=== PATIENT | female | born 1995 | race Caucasian/White ===

== ENCOUNTER 2017-04-13 13:52 | Emergency (ER) | payer OTHER ==
[2017-04-13 14:02] VITALS: RESP 20; TEMP 97.5
[2017-04-13] MEDS ORDERED: NS 1,000 ML IV ONE ×2 (14:15→15:18)
[2017-04-13] MEDS ORDERED: KETOROLAC 30 MG/1 ML SDV IVP ONE (14:15)
--- NOTE | 2017-04-13 14:16 | EDPHY ---
H & P Stated Complaint: L abd pain x 1 hr, +nausea, no vomiting/diarrhea. Source: Patient Exam Limitations: No limitations - Personal History LMP (Females 10-55): Extended Cycle BCP/Inj Current Tetanus/Diphtheria Vaccine: Yes Current Tetanus Diphtheria and Acellular Pertussis (TDAP): Yes - Medical/Surgical History Hx Asthma: No Hx Chronic Respiratory Disease: No Hx Diabetes: No Hx Cardiac Disease: No Hx Renal Disease: No Hx Cirrhosis: No Hx Alcoholism: No Hx HIV/AIDS: No Hx Splenectomy or Spleen Trauma: No Other PMH: adhd, anxiety - Social History Smoking Status: Current some day smoker Time Seen by Provider: 04/13/17 14:16 HPI/ROS: HPI: This is a 21-year-old female presents with Chief Complaint:Left abd pain x 1 hr, +nausea, no vomiting/diarrhea. Location: Left lower quadrant/left flank Quality: Shooting, sharp pain Duration: 1-3 hours Signs and Symptoms: + nausea, no vomiting, no diarrhea, no vaginal bleeding, no vaginal discharge, no shortness of breath, no dysuria, no hematuria, no hematemesis, no blood in stool Timing: Sudden, constant Severity: 10/10 Context: Patient woke up this afternoon and had sudden onset of shooting, sharp , severe 10/10, nonradiating pain in her left lower quadrant and left flank. Patient has at implant in her arm and her menses are irregular. Denies any vaginal bleeding/discharge. Denies any recent sexual activity. Yesterday she was eating and drinking normally. Denies burning with urination, urinary hesitancy, urinary frequency. No prior history of ovarian cyst/fibroids/kidney stones. She reports that she has not tried anything for the medications. She is adamant that this does not feel like a urinary tract infection. Had bowel movement this morning. Passing flatus. Modifying Factors: None Comment: ROS: see HPI Constitutional: No fever, no chills, no weight loss Eyes: No blurred vision Respiratory: No shortness of breath, no cough Cardiovascular: No chest pain Gastrointestinal: No nausea, no vomiting, no diarrhea Genitourinary: No dysuria Extremities: No myalgias Neurologic: No weakness, no numbness Skin: No rashes Hematologic: No bruising, no bleeding MEDICAL/SURGICAL/SOCIAL HISTORY: Medical history: Denies generally healthy Surgical history: Denies Social history: College student, works part-time CONSTITUTIONAL: Young adult white female, nontoxic in appearance, awake and alert, moderate distress HEENT: Atraumatic and normocephalic, PERRL, EOMI. Tympanic membranes clear. Oropharynx clear, no exudate and moist pink mucosa. Airway patent. No lymphadenopathy. No meningismus. Cardiovascular: Normal S1/S2, regular rate, regular rhythm, without murmur rub or gallop. PULMONARY/CHEST: Symmetrical and nontender. Clear to auscultation bilaterally. Good air movement. No accessory muscle usage. ABDOMEN: Soft, nondistended, moderate left lower/left-sided umbilicus tenderness, no rebound, + guarding, no peritoneal signs, no masses or organomegaly. No CVAT. EXTREMITIES: 2/2 pulses, no deformities, no clubbing, no cyanosis or edema. NEUROLOGICAL: no focal neuro deficits. GCS 15. SKIN: Warm and dry, no erythema. no rash. Good capillary refill. (Deena Barbosa) Constitutional: Initial Vital Signs Temperature (C) 36.4 C 04/13/17 13:58 Heart Rate 86 04/13/17 13:58 Respiratory Rate 20 04/13/17 13:58 Blood Pressure 120/88 H 04/13/17 13:58 O2 Sat (%) 100 04/13/17 13:58 O2 Delivery Mode Room Air Allergies/Adverse Reactions: No Known Allergies Allergy (Unverified 04/13/17 13:57) Home Medications: Medication Instructions Recorded Cefuroxime Axetil [Ceftin (*)] 250 mg PO BID #13 tab 04/13/17 Lexapro 04/13/17 Norplant 04/13/17 Ondansetron Odt [Zofran Odt 4 mg 4 mg PO Q4 PRN #12 tab 04/13/17 (*)] Vyvanse 04/13/17 oxyCODONE/APAP 5/325 [Percocet 1 - 2 tab PO Q4H PRN #12 tab 04/13/17 5/325 (*)] Medical Decision Making - Diagnostics Imaging Results: Imaging Impressions Abdomen/Pelvis CT 04/13/17 14:21 Impression: A 3-mm calculus at the ureterovesical junction distal left ureter, with minimal left hydroureter and hydronephrosis. Results called and discussed with Deena Barbosa PA-C, on April 13, 2017 at 1719. Attention: This CT examination is specifically designed to evaluate patients who are clinically suspected of having acute obstructive uropathy. This examination does not use radiographic contrast, and as such, provides only a limited evaluation of the abdomen, pelvis, and retroperitoneum. If there is further clinical suspicion for pathological conditions other than obstructive uropathy, a complete CT evaluation of the abdomen and pelvis utilizing intravenous, oral, and rectal contrast should be considered. Pelvic/Renal Ultrasound 04/13/17 14:21 Impression: 1. Normal pelvic ultrasound. Findings discussed with Deena Barbosa PAC at 16:24 hour, 04/13/2017. ED Course/Re-evaluation: Labs, urinalysis, CT abdomen and pelvis without contrast, pelvic ultrasound, IV fluids, IV medications ordered Given 2 L normal saline, IV Toradol, IV morphine with adequate relief of pain serum hcg negative 1500: Labs reviewed and are grossly unremarkable. Urinalysis is consistent with infection; sent for urine culture; given Keflex. 1625: Called by Radiology who advised pelvic ultrasound shows no ectopic /ovarian torsion/ruptured ovarian cyst/fibroids 1720: Called by radiologist and CT abdomen and pelvis scan shows 3 mm small stone at the ureterovesical junction distal left ureter with no hydronephrosis. Given Flomax. Pain controlled and passed p.o. trial prior to discharge. Given strainer to take home. (Deena Barbosa) The patient was evaluated and managed by the physician assistant activities director. I have reviewed this chart and I agree with the findings and plan of care as documented , as indicated by my signature. I am the secondary supervising physician. ( Rita Lima) Differential Diagnosis: Abdominal pain in a female including but not limited to ovarian cyst, pelvic inflammatory disease, ovarian torsion, urinary tract infection, and appendicitis. (Deena Barbosa) - Data Points Laboratory Results: Laboratory Results 04/13/17 14:15 04/13/17 14:15 04/13/17 04/13/17 04/13/17 14:32 14:15 14:15 WBC RBC Hgb Hct MCV MCH MCHC RDW Plt Count MPV Neut % (Auto) Lymph % (Auto) [place] % (Auto) Eos % (Auto) Baso % (Auto) Nucleat RBC Rel Count Absolute Neuts (auto) Absolute Lymphs (auto) Absolute Monos (auto) Absolute Eos (auto) Absolute Basos (auto) Absolute Nucleated RBC Immature Gran % Immature Gran # Sodium 139 mEq/L mEq/L (134-144) Potassium 3.7 mEq/L mEq/L (3.5-5.2) Chloride 103 mEq/L mEq/L (97-110) Carbon Dioxide 20 mEq/l L mEq/l (22-31) Anion Gap 16 mEq/L mEq/L (8-16) BUN 13 mg/dL mg/dL (7-23) Creatinine 0.8 mg/dL mg/dL (0.6-1.0) Estimated GFR > 60 Glucose 114 mg/dL H mg/dL (70-100) Calcium 10.0 mg/dL mg/dL (8.5-10.4) Total Bilirubin 1.3 mg/dL mg/dL (0.1-1.4) Conjugated Bilirubin 0.2 mg/dL mg/dL (0.0-0.5) Unconjugated Bilirubin 1.1 mg/dL mg/dL (0.0-1.1) AST 36 IU/L IU/L (14-46) ALT 64 IU/L H IU/L (9-52) Alkaline Phosphatase 93 IU/L IU/L (38-126) Total Protein 8.0 g/dL g/dL (6.3-8.2) Albumin 4.7 g/dL g/dL (3.5-5.0) Lipase 52 IU/L IU/L (23-300) Beta HCG, Qual NEGATIVE Urine Color YELLOW Urine Appearance MODERATELY TURBID Urine pH 5.0 (5.0-7.5) Ur Specific [place] 1.021 (1.002-1.030) Urine Protein 1+ H (NEGATIVE) Urine Ketones TRACE H (NEGATIVE) Urine Blood 3+ H (NEGATIVE) Urine Nitrate NEGATIVE (NEGATIVE) Urine Bilirubin NEGATIVE (NEGATIVE) Urine Urobilinogen NEGATIVE EU EU (0.2-1.0) Ur Leukocyte Esterase 1+ H (NEGATIVE) Urine RBC 50-182 /hpf H /hpf (0-3) Urine WBC 15-25 /hpf H /hpf (0-3) Ur Epithelial Cells TRACE /lpf /lpf (NONE-1+) Urine Bacteria 3+ /hpf H /hpf (NONE SEEN) Urine Mucus 3+ /lpf H /lpf (NONE-1+) Urine Glucose NEGATIVE (NEGATIVE) 04/13/17 14:15 WBC 9.40 10^3/uL 10^3/uL (3.80-9.50) RBC 4.68 10^6/uL 10^6/uL (4.18-5.33) Hgb 14.0 g/dL g/dL (12.6-16.3) Hct 39.7 % % (38.0-47.0) MCV 84.8 fL fL (81.5-99.8) MCH 29.9 pg pg (27.9-34.1) MCHC 35.3 g/dL g/dL (32.4-36.7) RDW 12.6 % % (11.5-15.2) Plt Count 247 10^3/uL 10^3/uL (150-400) MPV 10.3 fL fL (8.7-11.7) Neut % (Auto) 62.0 % % (39.3-74.2) Lymph % (Auto) 26.2 % % (15.0-45.0) [place] % (Auto) 8.4 % % (4.5-13.0) Eos % (Auto) 2.9 % % (0.6-7.6) Baso % (Auto) 0.2 % L % (0.3-1.7) Nucleat RBC Rel Count 0.0 % % (0.0-0.2) Absolute Neuts (auto) 5.83 10^3/uL 10^3/uL (1.70-6.50) Absolute Lymphs (auto) 2.46 10^3/uL 10^3/uL (1.00-3.00) Absolute Monos (auto) 0.79 10^3/uL 10^3/uL (0.30-0.80) Absolute Eos (auto) 0.27 10^3/uL 10^3/uL (0.03-0.40) Absolute Basos (auto) 0.02 10^3/uL 10^3/uL (0.02-0.10) Absolute Nucleated RBC 0.00 10^3/uL 10^3/uL (0-0.01) Immature Gran % 0.3 % % (0.0-1.1) Immature Gran # 0.03 10^3/uL 10^3/uL (0.00-0.10) Sodium Potassium Chloride Carbon Dioxide Anion Gap BUN Creatinine Estimated GFR Glucose Calcium Total Bilirubin Conjugated Bilirubin Unconjugated Bilirubin AST ALT Alkaline Phosphatase Total Protein Albumin Lipase Beta HCG, Qual Urine Color Urine Appearance Urine pH Ur Specific [place] Urine Protein Urine Ketones Urine Blood Urine Nitrate Urine Bilirubin Urine Urobilinogen Ur Leukocyte Esterase Urine RBC Urine WBC Ur Epithelial Cells Urine Bacteria Urine Mucus Urine Glucose Medications Given: Discontinued Medications Cephalexin HCl (Keflex) 500 mg PO EDNOW ONE PRN Reason: Protocol Stop: 04/13/17 17:21 Last Admin: 04/13/17 17:27 Dose: 500 mg Sodium Chloride (Ns) 1,000 mls @ 0 mls/hr IV EDNOW ONE; Wide Open PRN Reason: Protocol Stop: 04/13/17 14:16 Last Admin: 04/13/17 14:35 Dose: 1,000 mls Sodium Chloride (Ns) 1,000 mls @ 0 mls/hr IV ONCE ONE; Wide Open PRN Reason: Protocol Stop: 04/13/17 15:19 Last Admin: 04/13/17 15:18 Dose: 1,000 mls Ketorolac Tromethamine (Toradol) 30 mg IVP EDNOW ONE Stop: 04/13/17 14:16 Last Admin: 04/13/17 14:34 Dose: 30 mg Morphine Sulfate (Morphine) 4 mg IVP EDNOW ONE Stop: 04/13/17 14:21 Last Admin: 04/13/17 14:32 Dose: 4 mg Tamsulosin HCl (Flomax) 0.4 mg PO EDNOW ONE Stop: 04/13/17 17:23 Last Admin: 04/13/17 17:28 Dose: 0.4 mg Departure - Departure Disposition: Home, Routine, Self-Care Clinical Impression: Ureterolithiasis, Renal colic on left side Condition: Good Instructions: Kidney Stones (ED), Renal Colic (ED) Additional Instructions: Please drink plenty of fluids. Strain your urine and keep the stone when it passes. Follow-up with Urology in the next 3-5 days. Referrals: ANSON LEIVA [Other] - As per Instructions Raymon Florian MD [Medical Doctor] - As per Instructions Prescriptions: Cefuroxime Axetil [Ceftin (*)] 250 mg PO BID #13 tab Ondansetron Odt [Zofran Odt 4 mg (*)] 4 mg PO Q4 PRN #12 tab PRN Reason: Nausea/Vomiting, Use 1st oxyCODONE/APAP 5/325 [Percocet 5/325 (*)] 1 - 2 tab PO Q4H PRN #12 tab PRN Reason: Pain, Severe
[2017-04-13 14:29] LABS: % IMMATURE GRANULYOCYTES 0.3 % (0.0-1.1); ABSOLUTE IMMATURE GRANULOCYTES 0.03 10^3/uL (0.00-0.10); ADD DIFF? NO; ADD MORPH? NO; ADD SCAN? NO; ATYPICAL LYMPHOCYTE FLAG 10 (0-99); FRAGMENT RBC FLAG 0 (0-99); HEMATOCRIT 39.7 % (38.0-47.0); LEFT SHIFT FLG 0 (0-99); LIPEMIA HEMOLYSIS FLAG 90 (0-99); MEAN CELL HEMOGLOBIN 29.9 pg (27.9-34.1); MEAN CELL HEMOGLOBIN CONCENTR. 35.3 g/dL (32.4-36.7); MEAN CELL VOLUME 84.8 fL (81.5-99.8); MEAN PLATELET VOLUME 10.3 fL (8.7-11.7); PLATELET CLUMPS FLAG 10 (0-99); PLATELET COUNT 247 10^3/uL (150-400); RED BLOOD CELL COUNT 4.68 10^6/uL (4.18-5.33); RED CELL DISTRIBUTION WIDTH 12.6 % (11.5-15.2)
[2017-04-13 14:40] LABS: ALANINE AMINOTRANSFERASE 64 IU/L (9-52); ALBUMIN 4.7 g/dL (3.5-5.0); ALKALINE PHOSPHATASE 93 IU/L (38-126); ANION GAP 16 mEq/L (8-16); ASPARTATE AMINOTRANSFERASE 36 IU/L (14-46); BILIRUBIN,TOTAL 1.3 mg/dL (0.1-1.4); BILIRUBIN-CONJUGATED 0.2 mg/dL (0.0-0.5); BILIRUBIN-UNCONJUGATED 1.1 mg/dL (0.0-1.1); CARBON DIOXIDE 20 mEq/l (22-31); CHLORIDE 103 mEq/L (97-110); CREATININE 0.8 mg/dL (0.6-1.0); GLOMERULAR FILTRATION RATE > 60; GLUCOSE 114 mg/dL (70-100); POTASSIUM 3.7 mEq/L (3.5-5.2); SODIUM 139 mEq/L (134-144)
[2017-04-13 15:01] LABS: COLOR YELLOW; LEUKOCYTE ESTERASE,URINE 1+ (NEGATIVE); NITRITE,URINE NEGATIVE (NEGATIVE)
[2017-04-13 15:05] LABS: BACTERIA 3+ /hpf (NONE SEEN); MUCUS 3+ /lpf (NONE-1+); RBC,URINE 50-182 /hpf (0-3); WBC,URINE 15-25 /hpf (0-3)
[2017-04-13] MEDS ORDERED: CEPHALEXIN 500 MG CAP PO ONE (17:20)
[2017-04-13] MEDS ORDERED: TAMSULOSIN HCL 0.4 MG CAP PO ONE (17:22)
[2017-04-13 17:31] VITALS: BP 113/73; PULSE 85; O2SAT 98
== END 2017-04-13 17:55 | disposition home or self-care (01) ==
DX: N20.1 Calculus of ureter (principal); F17.200 Nicotine dependence, unspecified, uncomplicated; E86.9 Volume depletion, unspecified
CPT/HCPCS: 96374; J1885

== ENCOUNTER 2017-05-05 19:59 | Emergency (ER) | payer OTHER ==
[2017-05-05 20:05] VITALS: O2SAT 96
--- NOTE | 2017-05-05 20:09 | EDPHY ---
H & P Stated Complaint: right knee inj last night HPI/ROS: CHIEF COMPLAINT: Right knee injury HISTORY OF PRESENT ILLNESS: The patient is a 21 y/o female complaining of right knee pain secondary to a fall last night. She previously tore her ACL, MCL, and meniscus in her right knee and had a subsequent surgical repair. Last night she describes falling while her knee was twisted laterally and then landing on that leg. She reports her pain feels the same as her prior ligamentous injuries. She has pain with bending and straightening of her right knee. She has too much pain to bear weight. She has been treating her pain with ice and ibuprofen without improvement. She denies any other injuries from the fall. No weakness or paresthesias. She is otherwise healthy. REVIEW OF SYSTEMS: A ten point review of systems was performed and is negative with the exception of the items mentioned in the HPI. Past medical history: ADHD Past surgical history: ACL/MCL/meniscus tear and repair 2010 Family history: noncontributory Social history: [employer] student. PCP: [facility]. General Appearance: Alert. Vital signs reviewed. Blood pressure 144/82 at triage. Eyes: Pupils equal and round, no conjunctival injection, no discharge. Anicteric. ENT, Mouth: Mucous membranes are moist, no oropharyngeal erythema or edema. Neck: No lymphadenopathy, supple. Respiratory: Lungs are clear to auscultation; no wheezes, rales, or rhonchi. Cardiovascular: Regular rate and rhythm; no murmur, rub, or gallop. Gastrointestinal: Abdomen is soft and nontender, no masses or organomegaly, bowel sounds normal. Skin: Warm and dry, no rashes on exposed skin, normal color. Back: Nontender to palpation over the thoracolumbar spine. No CVAT. Extremities: Right knee effusion, nontender along joint line and patella, pain with lateral movement of right knee. No ligamentous laxity with provocative testing. No lower extremity edema, no calf tenderness or swelling. Neurological: Alert and oriented. Psychiatric: Normal affect. - Personal History LMP (Females 10-55): Extended Cycle BCP/Inj Current Tetanus/Diphtheria Vaccine: Yes - Medical/Surgical History Hx Asthma: No Hx Chronic Respiratory Disease: No Hx Diabetes: No Hx Cardiac Disease: No Hx Renal Disease: No Hx Cirrhosis: No Hx Alcoholism: No Hx HIV/AIDS: No Hx Splenectomy or Spleen Trauma: No Other PMH: adhd, anxiety. R ACL sx 6 years ago - Social History Smoking Status: Never smoked Constitutional: Initial Vital Signs Temperature (C) 37.1 C 05/05/17 20:01 Heart Rate 75 05/05/17 20:01 Respiratory Rate 16 05/05/17 20:01 Blood Pressure 144/82 H 05/05/17 20:01 O2 Sat (%) 96 05/05/17 20:01 O2 Delivery Mode Room Air Allergies/Adverse Reactions: No Known Allergies Allergy (Unverified 04/13/17 13:57) Home Medications: Medication Instructions Recorded Adderall Xr 20 mg Capsule 05/05/17 Medical Decision Making - Diagnostics Imaging: I viewed and interpreted images myself ED Course/Re-evaluation: This is a healthy 21 y/o female with a history of prior right knee ligamentous tear and repair who presents with an 11-hour history of right knee pain secondary to a fall last night. She is neurovascularly intact. She has a mild right knee effusion and pain with lateral movement of her knee. Plan for 600mg PO ibuprofen for pain, ice pack, and x-ray series. X-ray is unremarkable for acute process. Reassessed patient and discussed imaging. I recommended standard sprain care instructions and follow up with her orthopedist in the next week. Return precautions discussed. She is comfortable with this plan. - Data Points Medications Given: Discontinued Medications Hydrocodone Bitart/Acetaminophen ([place] 5/325mg Prepack#6) 1 btl TAKEHOME EDNOW ONE Stop: 05/05/17 21:11 Last Admin: 05/05/17 21:27 Dose: 1 btl Ibuprofen (Motrin) 600 mg PO EDNOW ONE Stop: 05/05/17 20:16 Last Admin: 05/05/17 20:23 Dose: 600 mg Departure - Departure Disposition: Home, Routine, Self-Care Clinical Impression: Knee sprain Condition: Good Instructions: Knee Sprain (ED), Knee Immobilizer (ED) Additional Instructions: 1. Take 600mg ibuprofen every 6-8 hours for the next few days. You can alternate this with 650mg Tylenol every 4-6 hours (not to exceed 3000mg in 24 hours). 2. Apply ice to sore areas. 3. Keep your knee elevated whenever possible. 4. Wear knee immobilizer and use crutches until cleared by orthopedist. 5. Follow up with your orthopedic surgeon within 1 week. I recommend calling tomorrow to make an appointment. You've been referred to Dr. Rebolledo locally. 6. Return to the ED for severe pain, weakness or numbness in your leg, or other worsening of condition. Referrals: RAM[facility] LEIVA [Other] - As per Instructions Neymar Rebolledo MD [Medical Doctor] - As per Instructions Stand Alone Forms: School Excuse Report Scribed for: Rita Lima Report Scribed by: Joanie Almanzar Date of Report: 05/05/17 Time of Report: 20:19 Physician Review and Approval Statement: 05/05/17 20:09 Portions of this note were transcribed by the medical clerical assistant. I, Dr. Rita Lima, personally performed the history, physical exam, and medical decision- making; and confirmed the accuracy of the information in the transcribed note.
[2017-05-05] MEDS ORDERED: IBUPROFEN 600 MG TAB PO ONE (20:15)
[2017-05-05] MEDS ORDERED: HYDROCOD/APAP 5/325 PREPACK#6 BTL TAKEHOME ONE (21:10)
[2017-05-05 21:32] VITALS: BP 119/67; PULSE 72; RESP 14; TEMP 98.4
== END 2017-05-05 21:32 | disposition home or self-care (01) ==
DX: S83.91XA Sprain of unspecified site of right knee, initial encounter (principal); W18.30XA Fall on same level, unspecified, initial encounter
CPT/HCPCS: L1830